=== PATIENT | male | born 1990 | race Caucasian/White ===

== ENCOUNTER 2017-04-24 23:26 | Emergency (ER) | payer MEDICAID ==
[2017-04-25 00:53] VITALS: BP 143/93
== END 2017-04-25 00:53 | disposition home or self-care (01) ==
LOC: ED 23:26
DX: J02.9 Acute pharyngitis, unspecified (principal)
CPT/HCPCS: J0696; J2270

== ENCOUNTER 2017-09-16 18:24 | Emergency (ER) | payer MEDICAID ==
[~2017-09-16] VITALS: Ht 172.7 cm; Wt 95.2 kg
[2017-09-16 18:56] VITALS: Ht 172.7 cm; Wt 95.2 kg
[2017-09-16 22:01] VITALS: BP 141/92
== END 2017-09-16 22:01 | disposition home or self-care (01) ==
LOC: ED 18:24
DX: S83.421A Sprain of lateral collateral ligament of right knee, initial encounter (principal); W17.89XA Other fall from one level to another, initial encounter; Y93.89 Activity, other specified; Y92.89 Other specified places as the place of occurrence of the external cause; Y99.8 Other external cause status

== ENCOUNTER 2018-03-24 15:10 | Emergency (ER) | payer MEDICAID ==
[~2018-03-24] VITALS: Ht 175.3 cm; Wt 102.5 kg
[2018-03-24 15:25] VITALS: Ht 175.3 cm; Wt 102.5 kg
[2018-03-24 17:33] VITALS: BP 165/99
== END 2018-03-24 17:33 | disposition home or self-care (01) ==
LOC: ED 15:10
DX: B08.4 Enteroviral vesicular stomatitis with exanthem (principal)

== ENCOUNTER 2020-01-30 17:04 | Emergency (ER) | payer MEDICAID ==
[~2020-01-30] VITALS: Ht 175.3 cm; Wt 105.2 kg
[2020-01-30 17:09] VITALS: Ht 175.3 cm; Wt 105.2 kg
[2020-01-30 18:58] VITALS: BP 120/89
== END 2020-01-30 18:58 | disposition home or self-care (01) ==
LOC: ED 17:04
DX: J03.90 Acute tonsillitis, unspecified (principal)
CPT/HCPCS: 87804; Q0092; U0003-CS